=== PATIENT | male | born 1985 | race Two or more races ===

== ENCOUNTER 2023-05-15 16:30 | Emergency (ER) | payer SELFPAY ==
[~2023-05-15] VITALS: Ht 175.3 cm; Wt 69.0 kg
[2023-05-15] MEDS ORDERED: SODIUM CHLORIDE 0.9% 1,000 ML IV ONE (17:00)
[2023-05-15 17:28] LABS: Hematocrit 45.9 % (41.0-53.0); Hemoglobin 15.5 g/dL (13.5-17.5); Mean Corpuscular Hemoglobin 33.9 pg (28.0-32.0); Mean Corpuscular Hgb Conc. 33.8 g/dL (32.0-36.0); Mean Corpuscular Volume 100.3 fL (80.0-100.0); Red Blood Cells 4.58 10^6/uL (4.5-5.90); Red Cell Distribution Width 13.1 % (11.8-14.3); White Blood Cell 6.5 10^3/uL (4.4-10.8)
[2023-05-15 17:42] LABS: Basophils % (manual) 0 (0.0-2.0); Blast Cells 0; Eosinophils % (manual) 0 (0-7); Myelocytes % 0; Promyelocytes % 0; Reactive Lymphocytes 0
[2023-05-15 17:48] LABS: Alanine Aminotransferase 189 U/L (16-61); Albumin 4.8 g/dL (3.4-5.0); Anion Gap 18 (5-15); Aspartate Aminotransferase 190 U/L (15-37); BUN/Creatinine Ratio 14.7 (10.0-20.0); Blood Alcohol < 3.0 mg/dL (<10); Blood Urea Nitrogen 19 mg/dL (7-18); Calcium 10.2 mg/dL (8.5-10.1); Carbon Dioxide 18 mmol/L (21-32); Chloride 100 mmol/L (98-107); GFR African American 81 mL/min; GFR Non-African American 67 mL/min; Glucose 105 mg/dL (74-106); Potassium 4.5 mmol/L (3.5-5.1); Sodium 136 mmol/L (136-145)
[2023-05-15 17:48] LABS: Alcohol, Urine < 3.0 mg/dL (0-10); Amphetamine Screen, Urine NEGATIVE (NEGATIVE); Barbiturate Scree,Urine NEGATIVE (NEGATIVE); Benzodiazephine Screen, Urine NEGATIVE (NEGATIVE); Cannabinoid Screen, Urine POSITIVE (NEGATIVE); Cocaine Screen, Urine NEGATIVE (NEGATIVE); Phencyclidine Screen, Urine NEGATIVE (NEGATIVE)
[2023-05-15 17:50] LABS: Alkaline Phosphatase 32 U/L (45-117); Bilirubin, Total 1.8 mg/dL (0.2-1.0); Total Protein 8.8 g/dL (6.4-8.2)
[2023-05-15 17:55] LABS: Opiate Scree,Urine NEGATIVE (NEGATIVE)
[2023-05-15 17:59] VITALS: PULSE 90
[2023-05-15 18:37] LABS: Urine Bacteria NONE SEEN /hpf (None Seen); Urine Hyaline Cast MANY /lpf (0 - 2); Urine Mucus FEW (None Seen); Urine WBC 2 /hpf (0 - 3)
[2023-05-15 18:51] LABS: Urine Clarity CLEAR (Clear); Urine Color Straw (Yellow); Urine Protein, UAD Trace (Negative); Urine Specific Gravity 1.015 (1.001-1.035); Urine Urobilinogen Normal (Negative); Urine pH 5 (5.0-8.0)
[2023-05-15 18:52] LABS: Urine Blood Negative /uL (Negative)
[2023-05-15 19:04] LABS: Band Neutrophils % (manual) 4; Lymphocytes % (manual) 6 (10.0-50.0); Metamyelocytes % 3; Monocytes % (manual) 14 (0-12); Platelet Estimate Adequate
[2023-05-15 19:25] VITALS: PULSE 91; RESP 19; O2SAT 98
[2023-05-15] MEDS ORDERED: PHENSUP38 PR (20:12)
[2023-05-15] MEDS ORDERED: ALPR1TAB2 PO (21:00)
[2023-05-15 21:11] VITALS: BP 134/85; PULSE 85; RESP 20; TEMP 98.1; O2SAT 99
[2023-05-15] MEDS ORDERED: ALPRAZolam 0.5 MG TAB PO ONE (21:15)
== END 2023-05-15 21:48 | disposition home or self-care (01) ==
LOC: ER 16:34
DX: K64.9 Unspecified hemorrhoids (principal); K76.0 Fatty (change of) liver, not elsewhere classified; F10.10 Alcohol abuse, uncomplicated; R44.3 Hallucinations, unspecified; Y90.0 Blood alcohol level of less than 20 mg/100 ml
CPT/HCPCS: 36415; 74176; 80053; 80307; 80320; 81001; 85007; 85027; 96360; 99285; J7030